=== PATIENT | male | born 1935 | race Caucasian/White ===

== ENCOUNTER 2018-05-19 23:20 | Observation (INO) | payer MEDICARE ==
--- NOTE | 2018-05-19 23:48 | RAD ---
CHEST ONE VIEW: 05/19/18 HISTORY: Syncope. FINDINGS: No comparison. The cardiac silhouette is magnified by projection. Pulmonary vasculature upper limits of normal. Mediastinum is midline. No lobar consolidation or evidence of pneumothorax. Cardiac monito r leads overlie the chest. IMPRESSION: No active cardiopulmonary abnormalities are demonstrated. POS: [facility]
--- NOTE | 2018-05-19 23:50 | RAD ---
RIGHT KNEE FOUR VIEWS: 05/19/18 HISTORY: Fall. Right knee injury. FINDINGS: Joint spaces are preserved. Minimal osteophytosis. Osseous structures are demineralized. No acute fra cture, dislocation or fluid distention of the suprapatellar bursa. Calcification over the arterial st ructures. IMPRESSION: No acute osseous abnormalities are demonstrated. Osteoporosis. Atherosclerosis. POS: [facility]
[2018-05-19 23:54] LABS: #Basophils 0.1 thou/uL (0.0-0.2); #Eosinphils 0.1 thou/uL (0.0-0.7); #Lymphocytes 2.2 thou/uL (1.20-3.40); #Monocytes 0.4 thou/uL (0.11-0.59); #Neutrophils 2.5 thou/uL (1.40-6.50); %Eosinophils 2.4 % (0.0-10.0); %Lymphocytes 41.3 % (21.0-51.0); %Monocytes 7.9 % (0.0-10.0); %Neutrophils 47.4 % (42.0-75.0); Hemoglobin 13.2 g/dL (14.0-18.0); Mean Corpuscular HGB CONC 34.6 g/dL (32.0-36.0); Mean Corpuscular Hemoglobin 32.4 pg (27.0-31.0); Mean Corpuscular Volume 93.6 fL (78.0-98.0); Mean Platelet Volume 6.4 fL (7.4-10.4); Platelet Count 153 thou/uL (130-400); RBC Distribution Width 11.8 % (11.5-14.5); Red Blood Cell (RBC) Count 4.08 mill/uL (4.70-6.10); White Blood Cell (WBC) Count 5.2 thou/uL (4.8-10.8)
[2018-05-20 00:02] LABS: INR-International Normal Ratio 2.9; PTT 39.3 SEC (22.9-36.1); Prothrombin Time 30.3 SEC (12.0-14.7)
[2018-05-20 00:11] LABS: ALT (SGPT) 30 U/L (8-55); AST (SGOT) 37 U/L (5-34); Albumin 3.8 g/dL (3.4-4.8); Alkaline Phosphatase 68 U/L (40-150); Anion Gap 13 mmol/L (10-20); BUN (Urea Nitrogen) 17 mg/dL (8.4-25.7); Bilirubin, Total 1.7 mg/dL (0.2-1.2); Calc. Creatinine Clearance 0 mL/min (70-130); Calcium 9.2 mg/dL (7.8-10.44); Carbon Dioxide 26 mmol/L (23-31); Chloride 105 mmol/L (98-107); Estimated GFR-MDRD 65; Globulin 2.5 g/dL (2.4-3.5); Glucose 173 mg/dL (83-110); Lipase 44 U/L (8-78); Magnesium 2.2 mg/dL (1.6-2.6); Potassium 3.5 mmol/L (3.5-5.1); Protein, Total 6.3 g/dL (5.8-8.1); Sodium 140 mmol/L (136-145)
[2018-05-20 00:15] LABS: CKMB 3.9 ng/mL (0-6.6); Troponin I Less than 0.010 ng/mL (< 0.028)
[2018-05-20] MEDS ORDERED: hydrALAZINE 20 MG/ML VIAL SLOW IVP PRN (01:25)
[2018-05-20] MEDS ORDERED: Dextrose 50% Abboject 50 ML SYRINGE SLOW IVP PRN (01:25)
[2018-05-20] MEDS ORDERED: Ondansetron HCl/PF 4 MG/2 ML Vial IVP PRN (01:25)
[2018-05-20] MEDS ORDERED: Dextrose 5% in Water 1,000 ML IV PRN (01:25)
[2018-05-20] MEDS ORDERED: Ondansetron ODT 4 MG TAB PO PRN (01:25)
[2018-05-20] MEDS ORDERED: Sodium Chloride 0.9% 1,000 ML IV SCH (01:30)
[2018-05-20] MEDS ORDERED: Acetaminophen 500 MG TAB PO PRN (01:34)
--- NOTE | 2018-05-20 03:56 | HP ---
DATE OF ADMISSION: 05/20/2018 ATTENDING PHYSICIAN: Karmen Kellogg M.D. TRAUMA ACTIVATION: Not applicable. HISTORY OF PRESENT ILLNESS: This is an 82-year-old male who presented to [facility] status post a n unwitnessed fall/syncopal event. Per patient and family at bedside, the patient was ambulating out side when he fell. The patient has a past medical history of dementia and is a somewhat poor histori an, he states that he does not remember the events surrounding the fall. The patient and family stat e that he has had increasing dizziness/unsteadiness over the last couple of months during ambulation which typically resolves after a brief pause and activity. Upon my evaluation, the patient has a chi ef complaint of left lower calf pain and has a GCS of 14, which is baseline per patient and family. ALLERGIES: AUGMENTIN, DOXYCYCLINE and KEFLEX. 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 HOME MEDICATIONS: Include donepezil 23 mg p.o. daily, Synthroid 50 mcg p.o. daily, atorvastatin 20 m g p.o. daily, memantine 10 mg b.i.d., paroxetine 30 mg p.o. daily and Coumadin 4.5 mg p.o. daily. PAST SURGICAL HISTORY: Significant for cervical laminectomy in the 70s. SOCIAL HISTORY: The patient lives at home with his . Denies alcohol, tobacco or illicit drug us e. FAMILY HISTORY: Significant for brother with CAD. REVIEW OF SYSTEMS: A 10-point review of systems was performed and is essentially negative except as indicated in the HPI. Specifically, the patient denied fevers, chills, nausea, vomiting, chest pain, shortness of breath, palpitations. PHYSICAL EXAMINATION: VITAL SIGNS: Temperature 97.9, pulse 63, respirations 18, O2 sat 98%-100% on room air, blood pressur e 165/73. GENERAL: Well-developed elderly appearing male in no acute distress, resting in bed. HEAD: Normocephalic, atraumatic. EYES: Pupils are PERRL. Extraocular movements are intact. NECK: Supple. Trachea is midline. CHEST: Atraumatic. No tenderness to palpation. Normal work of breathing, symmetric rise. LUNGS: Clear to auscultation bilaterally. CARDIOVASCULAR: Regular rate and rhythm. He does have a 2/6 systolic murmur. ABDOMEN: Atraumatic, soft, nontender, nondistended. Pelvis is stable. MUSCULOSKELETAL: Back exam is reported as being within normal limits. EXTREMITIES: Bilateral upper extremities within normal limits. Right lower extremity within normal limits. Left calf tenderness to palpation. RADIOGRAPHIC FINDINGS AND LABORATORY DATA: WBC 5.2, hemoglobin 13.2, hematocrit 38.2, and platelet c ount 153. INR is 2.9. Sodium 140, potassium 3.5, chloride 105, carbon dioxide 26, BUN 17, creatinin e 1.08, glucose 173, total bilirubin 1.7, AST 37, ALT 30. Troponin less than 0.010. BNP 37.8. Righ t knee x-ray was negative for bony fracture or dislocation. Chest x-ray was read as without acute ca rdiopulmonary process. CT of the brain was negative for acute intracranial abnormality. ASSESSMENT: 1. Status post syncope. 2. INR of 2.9. 3. History of deep venous thrombosis, pulmonary embolism. 4. History of dementia. PLAN: Admit to stroke unit. The patient will have q.2 hour neuro checks. Repeat head CT in a.m. H old anticoagulants and Coumadin. Plan for admission were discussed with patient and family at [facility]. The patient is FULL CODE. Echocardiogram, given patient's systolic murmur and syncopal event. Blanca castanon attending has been notified of admission.
[2018-05-20 04:04] VITALS: BMI 28.1
[2018-05-20 05:55] LABS: #Eosinphils 0.2 thou/uL (0.0-0.7); #Monocytes 0.6 thou/uL (0.11-0.59); #Neutrophils 3.3 thou/uL (1.40-6.50); %Basophils 0.6 % (0.0-1.0); %Eosinophils 2.8 % (0.0-10.0); %Lymphocytes 32.3 % (21.0-51.0); %Monocytes 9.8 % (0.0-10.0); %Neutrophils 54.6 % (42.0-75.0); Hemoglobin 11.9 g/dL (14.0-18.0); Mean Corpuscular HGB CONC 34.2 g/dL (32.0-36.0); Mean Corpuscular Hemoglobin 32.3 pg (27.0-31.0); Mean Corpuscular Volume 94.6 fL (78.0-98.0); Mean Platelet Volume 6.7 fL (7.4-10.4); Platelet Count 138 thou/uL (130-400); RBC Distribution Width 11.7 % (11.5-14.5); Red Blood Cell (RBC) Count 3.67 mill/uL (4.70-6.10); White Blood Cell (WBC) Count 6.1 thou/uL (4.8-10.8)
[2018-05-20 06:15] LABS: Anion Gap 10 mmol/L (10-20); BUN (Urea Nitrogen) 19 mg/dL (8.4-25.7); Calc. Creatinine Clearance 75 mL/min (70-130); Calcium 8.5 mg/dL (7.8-10.44); Carbon Dioxide 27 mmol/L (23-31); Chloride 108 mmol/L (98-107); Estimated GFR-MDRD 78; Glucose 86 mg/dL (83-110); Potassium 3.6 mmol/L (3.5-5.1); Sodium 141 mmol/L (136-145)
[2018-05-20 06:17] LABS: CKMB 3.2 ng/mL (0-6.6); Troponin I Less than 0.010 ng/mL (< 0.028)
--- NOTE | 2018-05-20 07:36 | CT ---
CT HEAD NONCONTRAST: Date: 05/19/18 HISTORY: Syncope. FINDINGS: No comparison. There is no evidence of acute intracranial hemorrhage or infarct. Diffuse cortical atrophy and chroni c ischemic small vessel disease. No mass effect or shift of midline structures. IMPRESSION: Chronic-type findings. No acute intracranial abnormalities are demonstrated on noncontrast CT head. POS: [facility]
[2018-05-20] MEDS ORDERED: Famotidine 20 MG TAB PO SCH (09:00)
[2018-05-20 09:10] LABS: Bilirubin Negative (Negative); Blood, Urine Negative (Negative); Clarity CLEAR (Clear); Glucose, Urine (Dipstick) Negative (Negative); Leukocyte Negative (Negative); Nitrite Negative (Negative); Protein, Urine (Dipstick) Negative (Neg-Trace); Specific Gravity, Urine 1.012 (1.002-1.036)
--- NOTE | 2018-05-20 09:54 | CT ---
CT BRAIN WITHOUT CONTRAST: Date: 05/20/18 COMPARISON: 05/19/18. HISTORY: Fall, on Coumadin, head trauma. TECHNIQUE: Multiple contiguous axial images were obtained in a CT brain without contrast. FINDINGS: There is diffuse cerebral atrophy. Scattered hypodensities in the subcortical and periventricular whi te matter are likely secondary to small vessel ischemic disease. No large confluent infarction is see n. There is no evidence of hydrocephalus, intracranial hemorrhage, or extra-axial fluid collection. The calvarium and overlying soft tissues are unremarkable. The visualized paranasal sinuses and masto id air cells are well aerated. IMPRESSION: No evidence of acute intracranial abnormality. POS: [facility]
[2018-05-20 11:30] VITALS: TEMP 97.2
[2018-05-20 11:51] VITALS: BP 140/69
--- NOTE | 2018-05-21 13:35 | DIS ---
DATE OF ADMISSION: 05/20/2018 DATE OF DISCHARGE: 05/20/2018 ADMISSION DIAGNOSES: 1. Status post unwitnessed fall, possible syncope. 2. History of deep venous thrombosis and pulmonary embolism on chronic anticoagulation. 3. INR of 2.9. 4. History of dementia. DISCHARGE DIAGNOSES: 1. Status post unwitnessed fall, possible syncope. 2. History of deep venous thrombosis and pulmonary embolism on chronic anticoagulation. 3. INR of 2.9. 4. History of dementia. CONSULTANTS: None. PROCEDURES: None. HOSPITAL COURSE: Mr. Edson Peguero is an 82-year-old male who presented to [facility] status post fall outside of his home. He was seen and evaluated in the emergency room and although his initial CT brain was negative, the patient is on Coumadin with an INR of 2.9, therefore Trauma Services was a sked to admit for observation. Patient was admitted to the stroke unit with q.2 hours neuro checks a nd repeat head CT was performed which was also negative. The patient had an echocardiogram, which di d not demonstrate any structural cardiac abnormalities that would explain his possible syncopal event . 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 DISCHARGE DISPOSITION: Home. DISCHARGE CONDITION: Fair. PHYSICAL EXAMINATION: VITAL SIGNS: Temperature 97.2, pulse 77, respirations 16, O2 92%-95% on room air, blood pressure 146 /73. GENERAL: Well-developed elderly male in no acute distress, sitting in bed. HEAD: Normocephalic, atraumatic. PULMONARY: Normal work of breathing, symmetric rise. CARDIOVASCULAR: Regular rate and rhythm, 2/6 systolic murmur. GASTROINTESTINAL: Abdomen is soft, nontender, nondistended. MUSCULOSKELETAL: Moves all extremities x4. NEUROLOGIC: No focal deficit noted. DISCHARGE MEDICATIONS: The patient was instructed to resume his home medications. No new medication s were added. He was advised to take Tylenol [id number] for any resultant headache from his fa ll. DISCHARGE INSTRUCTIONS: Discharge instructions as documented in the electronic medical record. All questions were answered prior to discharge. FOLLOWUP APPOINTMENTS: The patient should follow up with his primary care provider in 3-4 days. He needs to follow up with his booth manager within 7-10 days. He does not need to follow up formally [facility], but may call our office with any questions. This is merely a summary of the patient's hospitalization. For more in depth information, please see his medical record in its entirety.
--- NOTE | 2018-05-26 12:17 | EKG ---
Test Reason : Blood Pressure : / mmHG Vent. Rate : 062 BPM Atrial Rate : 062 BPM P-R Int : 186 ms QRS Dur : 078 ms QT Int : 412 ms P-R-T Axes : 056 -15 037 degrees QTc Int : 418 ms Normal sinus rhythm Normal ECG Confirmed by LIVAN BURKS ([id number]), desk editor DENNIS MOHAN ([id number]) on 05/26/2018 12:16:44 PM Referred By: VITALIY Confirmed By:LIVAN BURKS
== END 2018-05-20 14:17 | disposition home or self-care (01) ==
LOC: ERS 23:20 → 2SE 05-20 03:24
PROVIDERS: ADMIT Surgery; ATTEND Surgery
DX: R55 Syncope and collapse (principal); F03.90 Unspecified dementia, unspecified severity, without behavioral disturbance, psychotic disturbance, mood disturbance, and anxiety; I10 Essential (primary) hypertension; Z86.711 Personal history of pulmonary embolism; Z86.718 Personal history of other venous thrombosis and embolism; Z79.01 Long term (current) use of anticoagulants; Z79.899 Other long term (current) drug therapy; Z88.0 Allergy status to penicillin; Z88.1 Allergy status to other antibiotic agents; W19.XXXA Unspecified fall, initial encounter
CPT/HCPCS: 70450 ×2; 71045; 73564; 80048; 80053; 81003; 82553 ×2; 83690; 83735; 83880; 84443; 84484 ×2; 85025 ×2; 85610; 85730; 93005; 93306; 94760; 97139; 99285; G0378; G8978; G8979; 36415; G0390